=== PATIENT | male | born 1985 | race Caucasian/White ===

== ENCOUNTER → 2021-04-22 11:07 | Outpatient (BNVA) | payer OTHER, SELFPAY | PROVIDERS: PCP Internal Medicine; Visit Provider Physician Assistant Medical | DX: S43.085A Other dislocation of left shoulder joint, initial encounter (principal); X50.0XXA Overexertion from strenuous movement or load, initial encounter | CPT/HCPCS: 73030; 99203 ==

== ENCOUNTER → 2021-04-25 10:53 | Outpatient (BNVA) | payer OTHER, SELFPAY | PROVIDERS: PCP Internal Medicine; Visit Provider Physician Assistant Medical | DX: S43.085A Other dislocation of left shoulder joint, initial encounter (principal); X58.XXXA Exposure to other specified factors, initial encounter; M25.312 Other instability, left shoulder | CPT/HCPCS: 99213 ==

== ENCOUNTER 2021-04-30 14:59 | Outpatient (REF) | payer OTHER, SELFPAY ==
--- NOTE | ~2021-04-30 | MR_ITS ---
EXAMINATION: MR SHOULDER WITHOUT CONTRAST, LEFT CLINICAL INFORMATION: Dislocation. Pain. COMPARISON: Most recent left shoulder radiographs dated 04/22/2021. TECHNIQUE: Multisequence MR imaging of the left shoulder was obtained without contrast on a high-field strength scanner. FINDINGS: ROTATOR CUFF: Intact. No muscle atrophy or fatty infiltration. BICEPS: Normal CORACOACROMIAL ARCH: The undersurface of the acromion is curved with no subacromial spur. Moderate hypertrophic acromioclavicular osteoarthritis. LABRUM/CAPSULE: Linear fluid extending through the undersurface of the superior and posterosuperior labrum, consistent with nondisplaced undersurface tearing. Small paralabral cyst measuring 0.4 cm adjacent to the posterosuperior glenoid. Intact joint capsule. GLENOHUMERAL JOINT/MARROW: Normal. MR/MR shoulder LT wo con IMPRESSION: 1. Nondisplaced undersurface tear of the superior and posterosuperior labrum with a small adjacent paralabral cyst. 2. Moderate hypertrophic acromioclavicular osteoarthritis.
== END 2021-04-30 15:00 | disposition home or self-care (01) ==
LOC: HO.MRI 14:59
PROVIDERS: PCP Nurse Practitioner Family; Visit Provider Internal Medicine
DX: S43.005D Unspecified dislocation of left shoulder joint, subsequent encounter (principal)
CPT/HCPCS: 73221

== ENCOUNTER 2021-05-06 08:22 | Outpatient (REF) | payer OTHER, SELFPAY ==
--- NOTE | ~2021-05-06 | XR_ITS ---
EXAMINATION: XR SHOULDER, LEFT CLINICAL INFORMATION: Shoulder pain COMPARISON: X-ray 02/20/2021. MRI 04/30/2021 TECHNIQUE: 3 views of the left shoulder. FINDINGS: On the frontal projections, there is prominent glenohumeral joint space narrowing. This appears more prominent as compared to the prior x-ray of 04/22/2021. The axillary view is not obtained in today's study. The difference in appearance could be related to difference in positioning/technique. On one of the views, there is slight inferior subluxation of the humeral head with respect to glenoid. No acute fracture is seen.. Mild acromioclavicular arthritis. XR/XR shoulder LT min 2V IMPRESSION: 1. Prominent glenohumeral joint space narrowing on the frontal projections. This appears more prominent as compared to the recent x-ray of 04/22/2021. The axillary view is not obtained. This is of uncertain etiology and significance. The difference in appearance could be related to difference in positioning/technique. Other etiologies cannot be excluded. Request close clinical correlation and management. Additional/follow-up imaging as clinically warranted. 2. No acute fractures seen. Mild inferior subluxation of the humeral head with respect to glenoid on one of the views. The report will be called to the ordering clinician by a [facility] Radiology Physician [employer] Contemporary [employer] Curator.
== END 2021-05-06 08:23 | disposition home or self-care (01) ==
LOC: HO.HOSX 08:22
PROVIDERS: Visit Provider Physician Assistant
DX: S43.012A Anterior subluxation of left humerus, initial encounter (principal); M24.512 Contracture, left shoulder
CPT/HCPCS: 73030; 99202

== ENCOUNTER → 2021-05-08 12:34 | Outpatient (BNVA) | payer OTHER, SELFPAY | PROVIDERS: PCP Nurse Practitioner Family; Visit Provider Physician Assistant | DX: M24.419 Recurrent dislocation, unspecified shoulder (principal); S43.012D Anterior subluxation of left humerus, subsequent encounter | CPT/HCPCS: 99212 ==

== ENCOUNTER 2021-05-20 11:00 | Outpatient (RCR) | payer OTHER, MEDICAID, SELFPAY ==
--- NOTE | 2021-05-15 11:52 | MHC.PT.EP ---
[facility] [place] Office [place] Office [place] Office [address] [phone] F: [phone] F: [phone] F: [phone] F: [phone] Physical Therapy Plan of Care Date of Evaluation: Date of Surgery: n/a Diagnosis: L shoulder instability Assessment: Patient is a 36 year old R handed male who presents with s/s consistent with L shoulder instability. He works with daily job demands including lifting overhead. Patient past medical history is fairly unremarkable. Current impairments include pain, posture, ROM, stability, strength, activity tolerance and functional mobility. Functional limitations include decreased ability to reach, lift, carry, push, pull and sleep. Patient is motivated with good rehab potential. Skilled PT will address impairments and functional limitations in order to achieve goals. Frequency and Duration: The patient will be seen 2x/week 8 weeks Short Term Goals: I with HEP -2 weeks Full pain free ROM - 4 weeks Able to tolerate MMT - 2 weeks Nursing Home Goals: Strength 4/5 g rossly - 7 weeks No dislocations for 2 weeks - 6 weeks Pain free sleep - 5 weeks Pain free return to all work related activities - 8 weeks Treatment Plan: Modalities to reduce pain, spasms and effusion. Manual therapy to restore motion and function. Therapeutic exercise to improve strength and flexibility. Neuromuscular re-education for posture and balance. Therapeutic activities to return to functional activities of daily living. Electronically signed by: Ariel Mendez, PT Please sign and return to therapist. Thank you for your referral.
--- NOTE | 2021-06-18 08:43 | MHC.PT.DC ---
[facility] [place] Office [place] Office [place] Office [address] Victorino Sanchez [address] [phone] F: [phone] F: [phone] F: [phone] F: [phone] Physical Therapy Discharge Report Diagnosis: L shoulder instability Date of Surgery: n/a Date of Evaluation: 05/15/21 Date of Discharge: Treatments to Date: 2 Cancellations to Date: 0 No Shows to Date: 0 Discharge Status: Patient Elected to Stop Discharge Summary: After 05/20/21 appointment, pt returned to ortho and consented to surgery. 05/20/21: responded well to isometrics. added to HEP. still unstable with many movements. Patient is a 36 year old R handed male who presents with s/s consistent with L shoulder instability. He works with daily job demands including lifting overhead. Patient past medical history is fairly unremarkable. Current impairments include pain, posture, ROM, stability, strength, activity tolerance and functional mobility. Functional limitations include decreased ability to reach, lift, carry, push, pull and sleep. Patient is motivated with good rehab potential. Skilled PT will address impairments and functional limitations in order to achieve goals. Electronically signed by: Ariel Mendez, PT Please sign and return to therapist. Thank you for your referral.
== END 2021-05-21 07:00 | disposition home or self-care (01) ==
LOC: HO.PTCHIC 11:00
PROVIDERS: PCP Nurse Practitioner Family; Visit Provider Physician Assistant
DX: S43.012A Anterior subluxation of left humerus, initial encounter (principal); M24.412 Recurrent dislocation, left shoulder
CPT/HCPCS: 97014; 97110; 97161

== ENCOUNTER 2021-05-22 12:22 | Outpatient (REF) | payer OTHER, MEDICAID, SELFPAY ==
--- NOTE | ~2021-05-22 | XR_ITS ---
EXAMINATION: XR SHOULDER, LEFT CLINICAL INFORMATION: Pain COMPARISON: 05/06/2021 TECHNIQUE: AP external rotation, Grashey, scapular Y, and axillary views of the left shoulder. FINDINGS: The glenohumeral joint and acromioclavicular joints appear intact. There are mild degenerative changes in both the AC joint and glenohumeral joints. No fracture. Soft tissues unremarkable. XR/XR shoulder LT min 2V IMPRESSION: Mild degenerative changes in the acromioclavicular joint and glenohumeral joints.
== END 2021-05-22 12:23 | disposition home or self-care (01) ==
LOC: HO.HOSX 12:22
PROVIDERS: Visit Provider Orthopaedic Surgery
DX: M25.512 Pain in left shoulder (principal); S43.012A Anterior subluxation of left humerus, initial encounter; S46.912A Strain of unspecified muscle, fascia and tendon at shoulder and upper arm level, left arm, initial encounter; X58.XXXA Exposure to other specified factors, initial encounter; Y93.9 Activity, unspecified; Y92.9 Unspecified place or not applicable; Y99.8 Other external cause status
CPT/HCPCS: 73030; 99212

== ENCOUNTER 2021-05-27 06:59 | Day surgery (SDC) | payer OTHER, MEDICAID, SELFPAY ==
[2021-05-27 07:11] VITALS: BMI 26.6
[2021-05-27 07:26] VITALS: BP 104/65; PULSE 82; RESP 16; TEMP 36.8; O2SAT 97
--- NOTE | 2021-05-27 07:27 | HO.ANESPROP2 ---
HPI - Anesthesia Eval Consult details Narrative: 36 M for left shoulder arthroscopy . 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 (Acute) Recurrent subluxation of shoulder with multidirectional instability (Acute) Anterior subluxation of left shoulder (Acute) Past Medical History Medical History History of appendicitis Functional capacity: independent ambulation Family History Family history of problems with anesthesia: No Surgical History Surgical History H/O thumb surgery History of Problems with Anesthesia: No Social History Social History Patient Tobacco Use Status: Never used Tobacco Use of substances other than those prescribed or required for medical reasons: Yes Are you DNR?: No Advance Directives: No Advance Directives Information Provided: Yes Recently lost weight without trying: No Nutrition Risks: No Nutritional Risk Current occupational status: employed 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/[employer] Meds Allergies Allergy/AdvReac Type Severity Reaction Status Date / Time No Known Allergies [NKA] Allergy Mild NA Verified 05/22/21 12:38 none Allergy Unknown Unknown Uncoded 05/06/21 15:09 Active Medications: Current Medications Cefazolin Sodium/Dextrose (Ancef) 2 gm in 50 mls @ 100 mls/hr IV PREOP ONE Stop: 05/27/21 08:00 Home Medications Medication Instructions Recorded Confirmed Last Taken Type ibuprofen 800 mg tablet 800 mg PO TID 05/06/21 Unknown History Exam Exam Date and Time: May 27, 2021 0727 Height,Weight and Vital Signs: Height 5 ft 9 in Weight 81.647 kg Airway Mallampati Class: II Neck ROM: Full Loose/Missing/Broken Teeth: Yes (Poor dentation , lower metal retainer ) Heart: rrr Lungs: bl breath sounds Assessment and Plan Final Anesthetic Review Family History of Problems with Anesthesia: No History of Problems with Anesthesia: No NPO: Yes ASA Class: II Patient Risk: Intermediate Procedure Risk: Intermediate Assessment/Block/Sedation in SS: Assess/Block/Sedation-SS Anesthetic Plan Anesthetic Plan: GA Disposition: Standard PACU
[2021-05-27] MEDS: Lactated Ringers 1,000 ML 80 ML IVCONT (07:38)
--- NOTE | 2021-05-27 08:37 | MHC.SHP ---
Pre-Procedural Eval Section A Date of Service: 05/27/21 The patient is an INPATIENT: No Changes since office visit: Yes Patient answered all questions; No Cold of Flu in the past 2 weeks, No New Medical Problems and No Changes in Medication The History & Physical has been completed within 30 days and I have reviewed it.: Yes Section B Chief Complaint: dislocation Allergies: Allergies Allergy/AdvReac Type Severity Reaction Status Date / Time No Known Allergies [NKA] Allergy Mild NA Verified 05/22/21 12:38 none Allergy Unknown Unknown Uncoded 05/06/21 15:09 Plan I have reviewed the history and physical and performed a pertinent physical examination on my patient. No changes have occurred unless specified.
--- NOTE | 2021-05-27 12:11 | P.BOP_ITS ---
Brief Operative Note Date of Service: 05/27/21 Pre-op diagnosis: left shoulder instability Post-op diagnosis: same Procedure: anterior labral repair with capsular plication Posterior labral repair Implants: [employer] and [employer] microraptor x 5 Surgeon: Js Avalos MD Anesthesia: GETA Was an Child Guidance Counselor used for this Procedure?: Yes Child Guidance Counselor: Angie Zaldivar Estimated blood loss (mL): 20 IV fluids (mL): 1,200 Pathology: none sent Condition: stable Disposition: PACU
[2021-05-27 12:26] VITALS: BP 113/64; PULSE 84; RESP 18; TEMP 36.4; O2SAT 100
[2021-05-27 12:31] VITALS: BP 111/56; PULSE 77; RESP 23; O2SAT 98
[2021-05-27 12:36] VITALS: BP 107/64; PULSE 78; RESP 18; O2SAT 99
[2021-05-27 12:41] VITALS: BP 117/72; PULSE 72; RESP 18; O2SAT 98
[2021-05-27 12:56] VITALS: BP 111/73; PULSE 70; RESP 18; TEMP 36.3; O2SAT 98
--- NOTE | 2021-05-28 12:25 | P.OP_ITS ---
Operative Note Operative Note Date of Service: 05/28/21 Narrative: Date of Service: 05/27/21 Pre-op diagnosis: left shoulder instability Post-op diagnosis: same Procedure: anterior labral repair with capsular plication Posterior labral repair Implants: [employer] Pharm[employer] and nephew microraptor x 5 Surgeon: Js Avalos MD Anesthesia: GETA Was an Spinning Room Worker used for this Procedure?: Yes Spinning Room Worker: Angie Zaldivar Estimated blood loss (mL): 20 IV fluids (mL): 1,200 Pathology: none sent Condition: stable Disposition: PACU Procedure in detail: Patient was brought to the operative room placed in the right lateral position and all bony prominences were well padded. A Spyder device ( [employer]) was use to suspend his arm with traction. He was prepped and draped in standard sterile fashion and a time out was called to indentify proper site, proper procedure and IV antibiotics per weight were administered. I began by making a stab incision posterolaterally and placed my blunt trocar atraumatically into the glenohumeral joint. I then established a low anterior portal and then a standard anterolateral through which a smaller cannula was placed. The large cannulas placed just proximal to the subscapularis. There was a labral tear posteriorly and anteriorly and inferiorly. He had a positive drive-through sign. The capsule was patulous anteriorly but not so posteriorly. I placed my camera through the anterior portal and then debrided the posterior labrum. I repaired the posterior labrum with a small portion of capsule using for sutures and 2 [employer] micro raptor knotless anchors. I had excellent repair of posterior labrum with a good posterior bumper. I then turned my attention to the anterior labrum. He had a soft tissue Bankart from 12:00 to 3:00. I debrided the anterior inferior glenoid down to bleeding bone and then placed 6 sutures through the labrum from the 06:00 o'clock to the 3 o'clock position and then these were secured using 3 Obando [employer] Nephew micro raptor anchors. Again I had excellent reapproximation of the labrum and a good bumper with a tightening of the anterior inferior Nelda capsuloligamentous complex. I had no longer had a drive-through sign and I was satisfied that the labrum had been tightened and that capsule plicated. The remainder of the cartilage surfaces were normal. The biceps anchor and biceps and superior labrum were not torn. There was no undersurface rotator cuff tear. The subscapularis was intact I took my final pictures and removed all instrumentation. Portals were closed with nylon the patient was placed in sterile dressing and a sling extubated brought to recovery room stable condition there were no known complications.
== END 2021-05-27 13:37 | disposition home or self-care (01) ==
PROVIDERS: PCP Nurse Practitioner Family; Visit Provider Orthopaedic Surgery
PROC: (CPT 29805; principal; 2021-05-27 08:30)
DX: M24.412 Recurrent dislocation, left shoulder (principal); M25.312 Other instability, left shoulder; M25.512 Pain in left shoulder
CPT/HCPCS: 29806; C1713; J0171; J0690; J2250; J3010

== ENCOUNTER 2021-06-02 08:51 | Outpatient (RCR) | payer OTHER, MEDICAID, SELFPAY | END 2021-07-11 13:54 | disposition home or self-care (01) | LOC: HO.PT 08:51 | PROVIDERS: Visit Provider Physician Assistant | DX: M24.419 Recurrent dislocation, unspecified shoulder (principal) ==

== ENCOUNTER → 2021-06-05 10:21 | Outpatient (BNVA) | payer OTHER, MEDICAID, SELFPAY | PROVIDERS: PCP Nurse Practitioner Family; Visit Provider Physician Assistant | DX: M24.419 Recurrent dislocation, unspecified shoulder (principal) | CPT/HCPCS: 99212 ==

== ENCOUNTER 2021-06-16 07:08 | Outpatient (REF) | payer OTHER, MEDICAID, SELFPAY ==
--- NOTE | ~2021-06-16 | XR_ITS ---
EXAMINATION: XR SHOULDER, LEFT CLINICAL INFORMATION: Shoulder pain COMPARISON: Radiographs left shoulder 05/22/2021, 05/06/2021 TECHNIQUE: Left shoulder is imaged in frontal and lateral views. FINDINGS: There is normal bony mineralization. There is no fracture or dislocation or destructive process. The acromioclavicular alignment is normal. There are no visible rotator cuff calcifications. Left lung apex shows no pneumothorax or pleural reaction. XR/XR shoulder LT min 2V IMPRESSION: No acute bony abnormality. No visible rotator cuff calcifications.
== END 2021-06-16 07:09 | disposition home or self-care (01) ==
LOC: HO.HOSX 07:08
PROVIDERS: Visit Provider Physician Assistant
DX: M24.412 Recurrent dislocation, left shoulder (principal)
CPT/HCPCS: 73030; 99212

== ENCOUNTER → 2021-07-14 11:13 | Outpatient (BNVA) | payer OTHER, MEDICAID, SELFPAY | PROVIDERS: Visit Provider Physician Assistant | DX: M24.412 Recurrent dislocation, left shoulder (principal) | CPT/HCPCS: 99212 ==

== ENCOUNTER 2021-07-17 08:58 | Outpatient (REF) | payer OTHER, MEDICAID, SELFPAY ==
--- NOTE | ~2021-07-17 | XR_ITS ---
EXAMINATION: XR SHOULDER, LEFT CLINICAL INFORMATION: Pain COMPARISON: Left shoulder radiograph from 06/16/2019 20/2 and 06/08/2021 TECHNIQUE: Two views of the left shoulder. FINDINGS: No acute visible fracture or dislocation. Mild degenerative changes of the left glenohumeral and acromioclavicular joint with joint space narrowing and periarticular osteophyte formation. Joint spaces and alignment are otherwise maintained. Soft tissues are unremarkable. Visualized portions of the left chest are unremarkable. XR/XR shoulder LT min 2V IMPRESSION: 1. No acute visible fracture or dislocation. 2. Mild degenerative changes of the left glenohumeral and acromioclavicular joint.
--- NOTE | ~2021-07-17 | XR_ITS ---
EXAMINATION: XR SHOULDER, LEFT CLINICAL INFORMATION: Pain and shoulder COMPARISON: Left shoulder radiograph from TECHNIQUE: Two views of the left shoulder. FINDINGS: There is inferior medial displacement of the humeral head in relation to the glenoid fossa, correlation for anterior dislocation versus accentuation of joint space widening secondary to patient positioning. No acute visible fracture. Joint spaces and alignment are otherwise maintained. Soft tissues are unremarkable. XR/XR shoulder LT min 2V IMPRESSION: 1. Inferior medial displacement of the humeral head in relation to the glenoid fossa, correlation for anterior dislocation versus accentuation of joint space widening secondary to patient positioning. 2. No acute visible fracture or dislocation.
== END 2021-07-17 08:59 | disposition home or self-care (01) ==
LOC: HO.HOSX 08:58
PROVIDERS: Visit Provider Physician Assistant
DX: M25.512 Pain in left shoulder (principal); S43.015D Anterior dislocation of left humerus, subsequent encounter
CPT/HCPCS: 73030; 99212

== ENCOUNTER 2021-12-08 08:00 | Outpatient (RCR) | payer OTHER, MEDICAID, SELFPAY ==
--- NOTE | 2021-06-09 14:56 | MHC.PT.EP ---
[facility] [place] Office [place] Office [place] Office [address] Victorino Sanchez [address] [phone] F: [phone] F: [phone] F: [phone] F: [phone] Physical Therapy Plan of Care Date of Evaluation: Date of Surgery: 05/27/21 Diagnosis: Recurrent dislocation s/p capsular plication 05/27/21 Assessment: 36 y/o L-hand dominant male s/p L anterior labral repair with capsular plication 05/27/21. 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 He was lifting a ~40# brass sheet overhead when his shoulder locked and gave out sometime early April 2021. He has been in a sling since injury with [employer] shoulder sling with abduction brace following surgery. Currently he is limited with reaching, lifting, grooming, dressing, motor power connector, and work-related tasks due to post-operative restrictions as well as pain. Due to post-operative status, strength was not tested on involved arm and shoulder ROM was not tested due to being only 2 weeks post-op and currently restricted per protocol limits (AA/PROM can begin 3 weeks post-op). He has pain L GH joint and WFL wrist AROM. He would benefit from skilled PT 2x/week for 12 weeks to address impairments, implement HEP, and optimize functional mobility. Will utilize [facility] protocol for arthroscopic anterior capsulolabral repair of the shoulder - bankart repair rehab guidelines. Frequency and Duration: The patient will be seen 2x/week for 12 week Short Term Goals: 6 weeks 1. I with HEP 2. Demonstrate AAROM L shoulder flexion to 100* per protocol 3. Demonstrate AROM L shoulder flexion to 90 in supine per protocol Skilled Nursing Goals: 12 weeks 1. I with HEP and self management of sx 2. Pt will be able to actively flexion > 140 in order to reach into overhead cabinets 3. Pt will be able to lift 20# box from 6 step to waist when protocol allows to facilitate job tasks and carrying Treatment Plan: Modalities to reduce pain, spasms and effusion. Manual therapy to restore motion and function. Therapeutic exercise to improve strength and flexibility. Neuromuscular re-education for posture and balance. Therapeutic activities to return to functional activities of daily living. Electronically signed by: Irma Palacios PT Please sign and return to therapist. Thank you for your referral.
--- NOTE | 2021-08-08 09:29 | MHC.PT.RE ---
[facility] [place] Office [place] Office [place] Office [address] Victorino Sanchez [address] [phone] F: [phone] F: [phone] F: [phone] F: [phone] Physical Therapy Re-evaluation Diagnosis: Recurrent dislocation s/p capsular plication 05/27/21 Date of Surgery: 05/27/21 Date of Evaluation: 06/09/21 Treatments to Date: 12 Cancellations to Date: 0 No Shows to Date: 0 Subjective: He saw Dr. Mena and was very happy with his visit. States they are planning a Latarjet surgery in 4-6 weeks following PT for strengthening. However he also reports surgery should have never been done as he has systemic hypermobility per surgeon. He has weaned from the sling except for sleeping. Pain Score: 4 Pain Location: L shoulder Objective Measures: Elbow A/PROM: WNL Shoulder AAROM supine: flexion 110 (elbow bent) , ER 16 shoulder AROM standing: flexion with elbow bent: 70 Assessment: Pt was seen by Dr. Mena 08/06/21 and he will be undergoing Latarjet procedure for instability. Updated script to wean from sling and initiate RTC strengthening. Since starting PT, sleeping has improved and pain levels have decreased. He now demonstrates 110 AA shoulder flexion and 16* ER in supine. In standing active shoulder flexion with elbow bent is 70*. He continues to have significant strength deficits < 3/5 throughout. He is compliant with HEP. Pt continues with difficulty dressing, grooming, bathing, lifting, reaching, L UE tasks, and job tasks (lifting, reaching). He would benefit from continued PT 2x/week for 6 weeks to emphasize strengthening, progress ROM, and optimize functional mobility. Progressed rhythmic stabilization and self isometrics with education on submax pressure. He had some 'creaking' intermittently with AAROM in supine but no subluxation today. Updated HEP with review of precautions. Short Term Goals: 6 weeks 1. I with HEP 2. Demonstrate AAROM L shoulder flexion to 100* - met 3. Demonstrate AROM L shoulder flexion to 90 in supine per protocol - progressing 4. Pt will be able to perform ER/IR with yellow theraband 3x10 with no instability Assayer Helper Goals: 18 weeks 1. I with HEP and self management of sx 2. Pt will be able to actively flexion > 140 in order to reach into overhead cabinets - progressing 3. Pt will be able to lift 20# box from 6 step to waist when protocol allows to facilitate job tasks and carrying 4. Pt will ambulate with arm swing and no signs of instability 5. Pt will demonstrate 75% of ROM all directions Frequency and Duration: The patient will be seen 2x/week for 6 more weeks Treatment Plan: Therapeutic Exercise Dynamic Therapeutic Activities Neuromuscular Re-ed Manual Therapies Taping Home Exercise Program Patient Education Electrical Stimulation Hot or Cold Pack Reviewed/ Agreed with Student Documentation: Therapist: Electronically signed by: Irma Palacios PT, DPT Please sign and return to therapist. Thank you for your referral.
--- NOTE | 2021-12-08 09:21 | MHC.PT.DC ---
[facility] [place] Office [place] Office [place] Office [address] Victorino Sanchez [address] [phone] F: [phone] F: [phone] F: [phone] F: [phone] Physical Therapy Discharge Report Diagnosis: Recurrent dislocation s/p capsular plication 05/27/21 Date of Surgery: 05/27/21 Date of Evaluation: 06/09/21 Date of Discharge: 12/08/21 Treatments to Date: 31 Cancellations to Date: 6 No Shows to Date: 0 Discharge Status: Improved Function Independent with HEP Discharge Summary: He has made ROM and strength gains since start of PT. This will help optimize surgical outcome this upcoming 12/11. We reviewed importance of discontinuing all PT exercises at this time and he will follow new exercises only following surgery. He has made good progress with improved ROM and strength although still suboptimal with episodes of instability. D/c at this time secondary to upcoming surgery. Electronically signed by: Irma Palacios PT Please sign and return to therapist. Thank you for your referral.
== END 2021-12-08 09:21 | disposition home or self-care (01) ==
LOC: HO.PTCHIC 08:00
PROVIDERS: PCP Internal Medicine; Visit Provider Physician Assistant
DX: M24.412 Recurrent dislocation, left shoulder (principal)
CPT/HCPCS: 97014; 97110; 97112; 97140; 97161; 97164

== ENCOUNTER 2022-04-13 11:00 | Outpatient (RCR) | payer OTHER, MEDICAID, SELFPAY | END 2022-04-13 12:21 | disposition home or self-care (01) | LOC: HO.PTCHIC 11:00 | PROVIDERS: Visit Provider Physical Therapist | DX: M24.419 Recurrent dislocation, unspecified shoulder (principal); Z98.890 Other specified postprocedural states | CPT/HCPCS: 97110; 97112; 97140; 97161 ==

== ENCOUNTER 2024-10-25 11:14 | Outpatient (REF) | payer MEDICAID, SELFPAY ==
[2024-10-25 13:25] LABS: MANUAL DIFF FLAG NO
[2024-10-25 13:38] LABS: Basophils Absolute Auto 0.1 X10*3/uL (0.0-0.2); Basophils Percent Auto 1.2 % (0-2); Eosinophils Absolute Auto 0.2 X10*3/uL (0.0-0.4); Eosinophils Percent Auto 3.1 % (0-4); Hematocrit 47.6 % (42.0-52.0); Hemoglobin 16.2 g/dl (14.0-18.0); Imm Gran Abs Auto 0.04 X10*3/uL (0.00-0.03); Imm Gran Pct Auto 0.5 % (0.0-0.4); Mean Corpuscular Hemoglobin 30.1 pg (27.0-33.0); Mean Corpuscular Volume 88.5 fL (80.0-98.0); Mean Platelet Volume 9.6 fL (9.4-12.4); Monocytes Absolute Auto 0.7 X10*3/uL (0.1-1.2); Monocytes Percent Auto 8.8 % (2-11); Neutrophils Absolute Auto 3.4 x10*3/uL (2.0-8.3); Neutrophils Percent Auto 46.4 % (45-73); Platelet Count 232 X10*3/uL (160-400); Red Blood Count 5.38 X10*6/uL (4.60-5.80); Red Cell Distribution Width 12.4 % (11.0-16.0); White Blood Count 7.4 X10*3/uL (4.8-10.8)
[2024-10-25 13:55] LABS: Alanine Aminotransferase 34 U/L (0-40); Albumin Level 4.4 g/dL (3.5-5.0); Alkaline Phosphatase 66 U/L (39-117); Anion Gap 9 (12-20); Aspartate Amino Transferase 30 U/L (5-37); Bilirubin Total 0.3 mg/dL (0.0-1.0); Blood Urea Nitrogen 22 mg/dL (9-16); Calcium 9.5 mg/dL (8.4-10.2); Carbon Dioxide 29 mmol/L (22-29); Chloride 105 mmol/L (96-108); Cholesterol 265 mg/dL (<200); Estimated Glomerular Filt Rate > 60; Glucose Random 106 mg/dL (60-115); HDL Cholesterol 44 mg/dL (>40); LDL Cholesterol Calculated 174 mg/dL (<100); Potassium 4.4 mmol/L (3.3-5.1); Sodium 139 mmol/L (135-145); Total Protein 6.9 g/dL (6.5-8.0); Triglycerides 236 mg/dL (<150)
[2024-10-25 14:14] LABS: Rheumatoid Factor < 13.0 IU/mL (<15.0)
[2024-10-25 14:45] LABS: Erythrocyte Sedimentation Rate 5 MM/HR (0-15)
[2024-10-27 15:03] LABS: Cyclic Citrullinated Peptide <16 UNITS
[2024-10-31 11:15] LABS: Anti Nuclear Antibody Pattern Nuclear, Speckled; Anti Nuclear Antibody Screen POSITIVE (NEGATIVE); Anti Nuclear Antibody Titer 1:40 titer
== END 2024-10-25 11:15 | disposition home or self-care (01) ==
LOC: HO.10HDL 11:14
PROVIDERS: Visit Provider Internal Medicine
DX: M13.0 Polyarthritis, unspecified (principal); M54.50 Low back pain, unspecified; M67.814 Other specified disorders of tendon, left shoulder; Z00.01 Encounter for general adult medical examination with abnormal findings
CPT/HCPCS: 36415; 80053; 80061; 85025; 85652; 86038; 86039; 86200; 86431

== ENCOUNTER 2024-11-23 11:51 | Outpatient (REF) | payer MEDICAID, SELFPAY ==
[2024-11-23 13:20] LABS: Alanine Aminotransferase 54 U/L (0-40); Albumin Level 4.1 g/dL (3.5-5.0); Alkaline Phosphatase 60 U/L (39-117); Anion Gap 8 (12-20); Aspartate Amino Transferase 32 U/L (5-37); Blood Urea Nitrogen 19 mg/dL (9-16); Calcium 8.9 mg/dL (8.4-10.2); Carbon Dioxide 28 mmol/L (22-29); Chloride 106 mmol/L (96-108); Cholesterol 282 mg/dL (<200); Estimated Glomerular Filt Rate > 60; HDL Cholesterol 36 mg/dL (>40); Potassium 4.3 mmol/L (3.3-5.1); Sodium 138 mmol/L (135-145); Total Protein 6.6 g/dL (6.5-8.0); Triglycerides 458 mg/dL (<150)
== END 2024-11-23 11:52 | disposition home or self-care (01) ==
LOC: HO.10HDL 11:51
PROVIDERS: Visit Provider Internal Medicine
DX: E78.00 Pure hypercholesterolemia, unspecified (principal); M13.0 Polyarthritis, unspecified; M67.814 Other specified disorders of tendon, left shoulder
CPT/HCPCS: 36415; 80053; 80061